=== PATIENT | female | born 1980 | race Caucasian/White ===

== ENCOUNTER 2021-08-15 12:51 | Outpatient (CLI) | payer BC | END 2021-08-15 12:52 | disposition home or self-care (01) | LOC: CSHCT 12:51 | PROVIDERS: ATTEND Physician Assistant | DX: R22.1 Localized swelling, mass and lump, neck (principal); D17.0 Benign lipomatous neoplasm of skin and subcutaneous tissue of head, face and neck | CPT/HCPCS: 70491 ==

== ENCOUNTER 2021-09-05 09:43 | Outpatient (CLI) | payer BC ==
[2021-09-05 22:00] LABS: SARS-CoV-2 PCR by NAA Not Detected (NotDetected)
== END 2021-09-05 09:44 | disposition home or self-care (01) ==
LOC: CSHLAB 09:43
PROVIDERS: ATTEND Surgery
DX: Z20.822 Contact with and (suspected) exposure to COVID-19 (principal); D17.9 Benign lipomatous neoplasm, unspecified
CPT/HCPCS: U0003; U0005

== ENCOUNTER 2021-09-08 06:59 | Day surgery (SDC) | payer BC ==
[2021-09-06 11:30] VITALS: BMI 27.3
[2021-09-08] MEDS ORDERED: Lidocaine 1% MPF 2 ML VIAL ONE (08:00)
[2021-09-08] MEDS ORDERED: Bupivacaine PF 0.5% 30 ML VIAL ONE (08:05)
[2021-09-08] MEDS ORDERED: EPINEPHrine 1 MG/ML AMP ONE (08:05)
[2021-09-08] MEDS ORDERED: PROPOFOL 20 ML ONE (08:54)
[2021-09-08] MEDS ORDERED: Fentanyl 100 MCG/2 ML VIAL ONE (08:55)
[2021-09-08] MEDS ORDERED: Ondansetron PF 4 MG/2 ML Vial ONE (09:00)
[2021-09-08] MEDS ORDERED: Dexamethasone 4 mg/ml Vial ONE (09:00)
[2021-09-08] MEDS ORDERED: Lidocaine 2% PF 5 ML VIAL ONE (09:03)
[2021-09-08] MEDS ORDERED: Acetaminophen 325 MG TAB PO PRN (11:15)
[2021-09-08] MEDS ORDERED: HYDROcodone/Acetaminophen 5/325 mg Tablet PO PRN (11:15)
== END 2021-09-08 11:05 | disposition home or self-care (01) ==
LOC: CSHSDC 06:59
PROVIDERS: ATTEND Surgery
PROC: 0JQ50ZZ Repair Left Neck Subcutaneous Tissue and Fascia, Open Approach (ICD-10-PCS; principal; 2021-09-08)
DX: D17.0 Benign lipomatous neoplasm of skin and subcutaneous tissue of head, face and neck (principal); I10 Essential (primary) hypertension
CPT/HCPCS: 88304; J0171; J0690; J1100; J2001; J2405; J2704; J3010; S0020

== ENCOUNTER 2024-05-06 13:53 | Outpatient (CLI) | payer BC | END 2024-05-06 13:54 | disposition home or self-care (01) | LOC: CSHMAMMO 13:53 | PROVIDERS: ATTEND Nurse Practitioner | DX: Z12.31 Encounter for screening mammogram for malignant neoplasm of breast (principal) | CPT/HCPCS: 77063; 77067 ==